=== PATIENT | female | born 1990 | race Caucasian/White ===

== ENCOUNTER 2017-11-27 21:22 | Emergency (ER) | payer BC ==
[2017-11-27 21:27] VITALS: BP 129/91; PULSE 75; TEMP 98.8; BMI 20.9
--- NOTE | 2017-11-27 21:46 | PDOC ---
History of Present Illness - General History Source: Patient Exam Limitations: No Limitations - History of Present Illness Initial Comments: 11/27/17 21:46 The patient is a 27 year old female with no significant past medical history who presents to the ED with erythema. The patient recently got 2 new tattoos on her left forearm, one on the wrist and one on the upper forearm, on Thursday (). Patient states she applied an ointment given to her by the tattoo shop on the wrist tattoo and a new ointment she has never used before to the upper forearm tattoo yesterday. She states she began to developed erythema and swelling on the upper forearm tattoo. The wrist tattoo is healing normally. Patient has gotten tattoos in the past but has not had a reaction like this before. Denies fever or chills. Denies any other symptoms. <Geovanny Parr - Last Filed: 11/27/17 21:46> <Marly Mckeon - Last Filed: 11/28/17 02:03> - General Chief Complaint: Redness To Affected Area Stated Complaint: RT ARM REDNESS Time Seen by Provider: 11/27/17 21:24 Past History <Geovanny Parr - Last Filed: 11/27/17 21:46> - Past Medical History COPD: No Seizures: Yes (JUVENILE EPILEPSY) - Suicide/Smoking/Psychosocial Hx Smoking History: Never smoked <Marly Mckeon - Last Filed: 11/28/17 02:03> - Past Medical History Allergies/Adverse Reactions: Allergies Allergy/AdvReac Type Severity Reaction Status Date / Time No Known Allergies Allergy Unverified 11/27/17 21:22 Home Medications: Ambulatory Orders Triamcinolone 0.5% Cream [Aristocort 0.5% Cream -] 1 applic TP BID #1 tube 11/27 Review of Systems - Review of Systems Able to Perform ROS?: Yes Comments:: 11/27/17 21:47 CONSTITUTIONAL: Absent: fever, chills, diaphoresis, generalized weakness, malaise, loss of appetite HEENT: Absent: rhinorrhea, nasal congestion, throat pain, throat swelling, difficulty swallowing, mouth swelling, ear pain, eye pain, visual Changes CARDIOVASCULAR: Absent: chest pain, syncope, palpitations, irregular heart rate, lightheadedness , peripheral edema RESPIRATORY: Absent: cough, shortness of breath, dyspnea with exertion, orthopnea, wheezing, stridor, hemoptysis GASTROINTESTINAL: Absent: abdominal pain, abdominal distension, nausea, vomiting, diarrhea, constipation, melena, hematochezia GENITOURINARY: Absent: dysuria, frequency, urgency, hesitancy, hematuria, flank pain, genital pain MUSCULOSKELETAL: Absent: myalgia, arthralgia, joint swelling SKIN: + erythema, swelling Absent: rash, itching, pallor HEMATOLOGIC/IMMUNOLOGIC: Absent: easy bleeding, easy bruising, lymphadenopathy, frequent infections ENDOCRINE: Absent: unexplained weight gain, unexplained weight loss, heat intolerance, cold intolerance NEUROLOGIC: Absent: headache, focal weakness or paresthesias, dizziness, unsteady gait, seizure, mental status changes, bladder or bowel incontinence PSYCHIATRIC: Absent: anxiety, depression, suicidal or homicidal ideation, hallucinations. All Other Systems: Reviewed and Negative <Geovanny Parr - Last Filed: 11/27/17 21:46> *Physical Exam - Vital Signs Last Vital Signs Temp Pulse Resp BP Pulse Ox 98.8 F 75 16 129/91 100 11/27/17 21:23 11/27/17 21:23 11/27/17 21:23 11/27/17 21:23 11/27/17 21:23 - Physical Exam Comments: 11/27/17 21:47 GENERAL: The patient is awake, alert, and fully oriented, in no acute distress. HEAD:[Normal with no signs of trauma. EYES: Pupils equal, round and reactive to light, extraocular movements intact, sclera anicteric, conjunctiva clear. EXTREMITIES: Normal range of motion, no edema. NEUROLOGICAL: Normal speech, normal gait. PSYCH: Normal mood, normal affect. SKIN: + 5x10cm erythematous mildly edematous minimally tender area of the left volar aspect proximal left forearm. central tattooed areas have mildly tender eschar with 3ml border of induration. No fluctuance, no discharge evident, no lymphangitic streaking, no pain on active or passive flexion/extension of fingers. Distal tattoo at left volar aspect of wrist is not erythematous, indurated, edematous, or tender. <Geovanny Parr - Last Filed: 11/27/17 21:46> - Vital Signs Last Vital Signs Temp Pulse Resp BP Pulse Ox 98.8 F 75 16 129/91 100 11/27/17 21:23 11/27/17 21:23 11/27/17 21:23 11/27/17 21:23 11/27/17 21:23 <Marly Mckeon - Last Filed: 11/28/17 02:03> Progress Note - Progress Note Progress Note: Documentation has been prepared under my direction and personally reviewed by me in its entirety. I attest that this documented accurately reflects all work, treatment, procedures and medical decision making performed by me. <Marly Mckeon - Last Filed: 11/28/17 02:03> Medical Decision Making - Medical Decision Making As noted above, this 27-year-old woman presents with erythematous, mildly edematous and mildly tender area around tattoo of the proximal forearm that was placed 3 days ago. Patient states that she put an ointment on the tattoo that she obtained on the Internet. She does not recall the name of the ointment and does not know its ingredients. Conversely, on another tattoo on the wrist of the same arm, the patient placed ointment given by the tattoo studio. This latter tattoo is neither erythematous or inflamed. Exam as noted; there is no fluctuance or discharge from the proximal tattoo although it does appear to be somewhat inflamed. Because the reaction seems to be clearly related to the topical agent placed on the proximal tattoo, unlikely that infection is present currently. The possible ALLERGIC reaction to the ointment will be treated with triamcinolone cream to the area She should return to the emergency room if there is any worsening of the pain/ swelling/redness of the area. Also, if she develops discharge from the wound or lymphangitic streaking, she should return to the ER. If there is any development of fever/chills, she should return. <Marly Mckeon - Last Filed: 11/28/17 02:03> *DC/Admit/Observation/Transfer - Attestations Scribe Attestion: 11/27/17 21:47 Documentation prepared by Geovanny Parr, acting as senior medical billing specialist for Marly Mckeon MD <Geovanny Parr - Last Filed: 11/27/17 21:46> <Marly Mckeon - Last Filed: 11/28/17 02:03> Diagnosis at time of Disposition: Contact allergic reaction - Discharge Dispostion Disposition: HOME Condition at time of disposition: Stable - Prescriptions Prescriptions: Triamcinolone 0.5% Cream [Aristocort 0.5% Cream -] 1 applic TP BID #1 tube - Patient Instructions Printed Discharge Instructions: DI for General Allergic Reactions Additional Instructions: Triamcinolone cream 0.5% to area of redness twice a day for 1 week Do not apply any other ointment/cream to the rash Return to ER if you have worsening redness/swelling or develop pain/discharge from area
== END 2017-11-27 21:55 | disposition home or self-care (01) ==
LOC: FER 21:22
DX: L23.5 Allergic contact dermatitis due to other chemical products (principal)
CPT/HCPCS: 99281-25